=== PATIENT | male | born 1960 | race Caucasian/White ===

== ENCOUNTER 2017-09-06 03:15 | Emergency (ER) | payer MEDICAID ==
[~2017-09-06] VITALS: Ht 188 cm; Wt 130.8 kg
[2017-09-06 03:16] VITALS: BP 172/91
[2017-09-06] MEDS ORDERED: DEXAMETHASONE 4 MG TABLET PO ONE (03:30)
[2017-09-06] MEDS ORDERED: DEXAMETHASONE 4 MG TABLET ONE (03:31)
[2017-09-06] MEDS ORDERED: LIDOCAINE-MPF 1%, 5ML ONE (03:42)
[2017-09-06] MEDS ORDERED: BENZOCAINE 20% SPRAY 0.5ML ONE (03:42)
[2017-09-06] MEDS ORDERED: BENZOCAINE 20% SPRAY 0.5ML TP ONE (04:00)
[2017-09-06] MEDS ORDERED: LIDOCAINE-MPF 1%, 5ML INFIL ONE (04:00)
[2017-09-07] MEDS ORDERED: AMOX1TAB12 PO (07:34)
== END 2017-09-06 04:23 | disposition home or self-care (01) ==
LOC: ED 04:06
DX: J36 Peritonsillar abscess (principal); J02.0 Streptococcal pharyngitis; R07.0 Pain in throat; F17.210 Nicotine dependence, cigarettes, uncomplicated
CPT/HCPCS: 42700; 87880; 99283; 99406

== ENCOUNTER 2018-03-10 21:08 | Emergency (ER) | payer MEDICAID ==
[~2018-03-10] VITALS: Ht 188 cm; Wt 136.7 kg
[~2018-03-10 21:08] MED LIST: AMOX1TAB12 PO
[2018-03-10 21:24] VITALS: BP 168/98
[2018-03-10 22:26] LABS: BASOPHILS # (AUTO) 0.07 x10^3/uL (0-0.1); BASOPHILS % (AUTO) 1 % (0-1); EOSINOPHILS # (AUTO) 0.31 x10^3/uL (0-0.4); EOSINOPHILS % (AUTO) 3 % (1-7); LYMPHOCYTES # (AUTO) 2.24 x10^3/uL (1-3.4); LYMPHOCYTES % (AUTO) 23 % (22-44); MD NO; MEAN CORPUSCULAR HEMOGLOBIN 30.1 pg (27.5-34.5); MEAN CORPUSCULAR HGB CONC 34.8 g/dL (33.2-36.2); MEAN CORPUSCULAR VOLUME 86.7 fL (81-97); MEAN PLATELET VOLUME 9.3 fL (7.4-10.4); MONOCYTES # (AUTO) 0.92 x10^3/uL (0.2-0.8); MONOCYTES % (AUTO) 9 % (2-9); NEUTROPHILS # (AUTO) 6.34 x10^3/uL (1.8-6.8); NEUTROPHILS % (AUTO) 64 % (42-75); PLATELET COUNT 278 x10^3/uL (130-400); RED CELL DISTRIBUTION WIDTH 12.8 % (9.4-14.8)
[2018-03-10 22:39] LABS: ALANINE AMINOTRANSFERASE 68 U/L (12-78); ALBUMIN 3.6 g/dL (3.4-5.0); ANION GAP 11 mmol/L (5-15); CALCIUM 8.5 mg/dL (8.5-10.1); CHLORIDE 102 mmol/L (98-107)
[2018-03-10 22:42] LABS: ALKALINE PHOSPHATASE 126 U/L (45-117); BILIRUBIN,TOTAL 0.7 mg/dL (0.2-1.0); TOTAL PROTEIN 8.4 g/dL (6.4-8.2)
[2018-03-10] MEDS ORDERED: DIPH,PERTUSS(ACELL),TET VAC/PF 0.5 ML IM-VACC ONE ×2 (23:10→23:30)
== END 2018-03-10 23:25 | disposition home or self-care (01) ==
LOC: ED 22:05
DX: L03.113 Cellulitis of right upper limb (principal); L03.011 Cellulitis of right finger; E11.65 Type 2 diabetes mellitus with hyperglycemia; E83.52 Hypercalcemia; I80.8 Phlebitis and thrombophlebitis of other sites; F17.200 Nicotine dependence, unspecified, uncomplicated; Z90.49 Acquired absence of other specified parts of digestive tract
CPT/HCPCS: 36415; 80053; 83605; 85025; 87040; 90471; 90715; 93005

== ENCOUNTER 2019-03-23 10:57 | Emergency (ER) | payer MEDICAID ==
[~2019-03-23] VITALS: Ht 188 cm; Wt 115.0 kg
--- NOTE | 2019-03-23 11:18 | NUR ---
THIS IS A 59 YO MALE BIB [facility] FOR LEFT FOOT PAIN/BURNING/NUMBNESS. TWO MONTHS AGO PATIENT WAS TOLD TO FOLLOW UP WITH DOCTOR FOR DIABETES SCREENING, PATIENT DID NOT FOLLOW UP. PATIENT CURRENTLY HAS LEFT FOOT NUMBNESS/PAIN/BURNING STARTING 3 DAYS AGO, STATES INCREASE IN THIRST AND URINATION. PATIENT HAS BEEN MEDICATING WITH IBUPROFEN WITH RELIEF OF PAIN. EN ROUTE, [facility] STATES BLOOD SUGAR WAS 320. IN ROOM, DOPPLER WAS USED TO LOCATED DISTAL PULSES IN LEFT FOOT. LOCATED AND MARKED BOTH DP AND PT PULSES IN LEFT FOOT AT 1110. PATIENT PLACED ON CONTINUOUS SPO2 AT 96%, CYCLE BP Q1HR. NEEDS ADDRESSED.
[2019-03-23] MEDS ORDERED: HYDROcodone/APAP 5/325 TABLET ONE (11:27)
[2019-03-23] MEDS ORDERED: HYDROcodone/APAP 5/325 TABLET PO ONE (11:30)
--- NOTE | 2019-03-23 11:31 | NUR ---
PATIENT WAS GIVEN LITER OF FLUID EN ROUTE BY [facility]. PATIENT MEDICATED PER EMAR, NEEDS ADDRESSED.
[2019-03-23 11:35] LABS: BASOPHILS # (AUTO) 0.01 x10^3/uL (0-0.1); BASOPHILS % (AUTO) 0 % (0-1); EOSINOPHILS # (AUTO) 0.17 x10^3/uL (0-0.4); EOSINOPHILS % (AUTO) 2 % (1-7); LYMPHOCYTES # (AUTO) 0.82 x10^3/uL (1-3.4); LYMPHOCYTES % (AUTO) 8 % (22-44); MD NO; MEAN CORPUSCULAR HEMOGLOBIN 28.9 pg (27.5-34.5); MEAN CORPUSCULAR HGB CONC 33.2 g/dL (33.2-36.2); MEAN PLATELET VOLUME 8.7 fL (7.4-10.4); MONOCYTES % (AUTO) 7 % (2-9); NEUTROPHILS % (AUTO) 83 % (42-75); PLATELET COUNT 212 x10^3/uL (130-400); RED BLOOD COUNT 5.23 x10^6/uL (4.38-5.82); RED CELL DISTRIBUTION WIDTH 13.7 % (9.4-14.8)
[2019-03-23 11:51] LABS: ALBUMIN 2.6 g/dL (3.4-5.0); ANION GAP 8 mmol/L (5-15); CALCIUM 8.6 mg/dL (8.5-10.1); CHLORIDE 103 mmol/L (98-107)
[2019-03-23] MEDS ORDERED: POTASSIUM CHLORIDE 20 MEQ PACKET ONE (12:19)
--- NOTE | 2019-03-23 12:23 | NUR ---
TASK RN: PT RESTING ON GURNEY. NADN. MORTON.
[2019-03-23 12:51] LABS: HCT (SEDRATE) 45.5 % (39.2-51.8)
[2019-03-23] MEDS ORDERED: POTASSIUM CHLORIDE 20 MEQ PACKET PO ONE (13:00)
--- NOTE | 2019-03-23 13:20 | NUR ---
TASK RN: PT RESTING ON GURNEY. BUCK VSS. REPORT GIVEN TO ASHKAN RAI.
--- NOTE | 2019-03-23 13:32 | NUR ---
[facility] RPT REC'D FROM ASHKAN AVINA. ASSUMED PT CARE. PT VSS, ALL TESTS RESULTED AND CHART MARKED FOR RECHECK. CALL LIGHT W/I REACH, NAD NOTED.
--- NOTE | 2019-03-23 15:22 | NUR ---
DR SMITH AT BEDSIDE. TEST RESULTS AND PAIN MGMT DISCUSSED. PT PAIN INCREASING, NEW ORDERS REC'D. MEAL TRAY ORDERED.
[2019-03-23] MEDS ORDERED: KETOROLAC 30 MG/1 ML ONE (15:26)
--- NOTE | 2019-03-23 15:33 | NUR ---
PT MED NOTED FOR FOOT PAIN. MEAL TRAY ORDERED, CALL LIGHT W/I REACH
[2019-03-23] MEDS ORDERED: KETOROLAC 30 MG/1 ML IM ONE (16:00)
[2019-03-23] MEDS ORDERED: KETOROLAC 30 MG/1 ML IVPush ONE (16:00)
[2019-03-23 17:09] VITALS: BP 122/76
--- NOTE | 2019-03-23 17:11 | NUR ---
Patient/Caregiver given discharge instructions and they have confirmed that they understand the instructions. Patient ambulatory with [facility]. TAXI VOUCHER PROVIDED
== END 2019-03-23 17:12 | disposition home or self-care (01) ==
LOC: ED 14:03
DX: M79.672 Pain in left foot (principal); E11.65 Type 2 diabetes mellitus with hyperglycemia; F17.200 Nicotine dependence, unspecified, uncomplicated
CPT/HCPCS: 29515; 36415; 73630; 73720; 80048; 82040; 85025; 85651; 93005; 96374; 99284; J1885

== ENCOUNTER 2019-08-26 13:27 | Inpatient (IN) | payer MEDICAID ==
[~2019-08-26] VITALS: Ht 188 cm; Wt 108.0 kg
--- NOTE | 2019-08-26 14:17 | NUR ---
FIRST CONTACT WITH PT. PT C/O CONTINUED LEFT HIP PAIN AFTER BEING DIAGNOSED WITH SEPTIC LEFT HIP THAT REQUIRED ADMISSION TO [facility] FOR ABOUT A MONTH PER PT AND WAS RELEASED YESTERDAY. PT RELEASED TO PENITENTIARY AND PT REPORTS HE/PENITENTIARY NOT ABLE TO CAR FOR HIM. PT'S AOX4. RESPS EVEN AND UNLABORED. BP/SPO2 MONITORS IN PLACE. CALL LIGHT WITHIN REACH. RAILS UP X 2.
[2019-08-26] MEDS ORDERED: MORPHINE SULFATE 4 MG/ML, 1ML ONE ×3 (14:21→19:07)
[2019-08-26] MEDS ORDERED: SODIUM CHLORIDE 0.9% 1,000ML IVBOLUS ONE (14:30)
[2019-08-26] MEDS: MORPHINE SULFATE 4 MG/ML, 1ML IVPush PRN ×2 (14:33→16:30)
--- NOTE | 2019-08-26 14:35 | NUR ---
pt medicated per emar for pain. pt tolerated well. ns infusing at this time.
[2019-08-26 14:42] LABS: BASOPHILS # (AUTO) 0.08 x10^3/uL (0-0.1); BASOPHILS % (AUTO) 1 % (0-1); EOSINOPHILS # (AUTO) 0.21 x10^3/uL (0-0.4); EOSINOPHILS % (AUTO) 2 % (1-7); LYMPHOCYTES % (AUTO) 23 % (22-44); MD NO; MEAN CORPUSCULAR HEMOGLOBIN 25.6 pg (27.5-34.5); MEAN CORPUSCULAR HGB CONC 32.7 g/dL (33.2-36.2); MEAN CORPUSCULAR VOLUME 78.3 fL (81-97); MEAN PLATELET VOLUME 8.4 fL (7.4-10.4); MONOCYTES # (AUTO) 1.15 x10^3/uL (0.2-0.8); MONOCYTES % (AUTO) 10 % (2-9); NEUTROPHILS # (AUTO) 7.51 x10^3/uL (1.8-6.8); NEUTROPHILS % (AUTO) 64 % (42-75); PLATELET COUNT 415 x10^3/uL (130-400); RED BLOOD COUNT 5.44 x10^6/uL (4.38-5.82); RED CELL DISTRIBUTION WIDTH 20.9 % (9.4-14.8)
[2019-08-26 14:44] LABS: ALBUMIN 3.2 g/dL (3.4-5.0); ANION GAP 7 mmol/L (5-15); CALCIUM 9.7 mg/dL (8.5-10.1); CHLORIDE 104 mmol/L (98-107)
[2019-08-26 14:53] LABS: ALANINE AMINOTRANSFERASE 24 U/L (12-78); ALKALINE PHOSPHATASE 114 U/L (45-117); BILIRUBIN,TOTAL 0.5 mg/dL (0.2-1.0); CREATININE 0.94 mg/dL (0.7-1.3); TOTAL PROTEIN 9.2 g/dL (6.4-8.2)
[2019-08-26] MEDS ORDERED: ACETAMINOPHEN 500 MG TABLET PO ONE (15:00)
--- NOTE | 2019-08-26 15:00 | NUR ---
RECTAL TEMP IS 101.1. EDMD/AIR COMPRESSOR OPERATOR NOTIFIED. PT DENIES ANY RESPS SX.
[2019-08-26] MEDS ORDERED: ACETAMINOPHEN 500 MG TABLET ONE (15:07)
--- NOTE | 2019-08-26 15:09 | NUR ---
pt medicated per emar for fever at this time. pt tolerated well.
[2019-08-26 15:37] LABS: HCT (SEDRATE) 42.5 % (39.2-51.8)
--- NOTE | 2019-08-26 15:49 | NUR ---
PT'S PAIN LEVEL IS 5/10 AT THIS TIME.
[2019-08-26] MEDS ORDERED: PIPERACILLIN/TAZO/PMX 3.375GM 50 ML IV ONE (16:00)
[2019-08-26] MEDS ORDERED: PIPERACILLIN/TAZO/PMX 3.375GM 50 ML ONE (16:10)
--- NOTE | 2019-08-26 16:15 | NUR ---
abx infusing at this time. pt tolerated well.
[2019-08-26] MEDS ORDERED: GABA600T7 PO (16:17)
[2019-08-26] MEDS ORDERED: CYCL5TAB PO (16:18)
[2019-08-26] MEDS ORDERED: HYDR-3237 PO (16:20)
[2019-08-26] MEDS ORDERED: DULO20CA45 PO (16:20)
[2019-08-26] MEDS ORDERED: DULO30CA2 PO (16:21)
--- NOTE | 2019-08-26 16:23 | NUR ---
Marcos olsen in [facility] - 08/26/19 at 1717 by DEO PT TO MRI AT THIS TIME.
[2019-08-26] MEDS ORDERED: VANCOMYCIN PER PHARMACY MC ONE (16:30)
--- NOTE | 2019-08-26 16:32 | NUR ---
pt medicated per emar before mri. pt to mri at this time.
--- NOTE | 2019-08-26 16:38 | NUR ---
called for report x 1. renard rn is busy and will call back.
[2019-08-26] MEDS ORDERED: VANCOMYCIN 2,000 MG in SODIUM CHLORIDE 0.9% 500 ML IV ONE (17:00)
--- NOTE | 2019-08-26 17:37 | NUR ---
called for report x 1. renard rn is busy and will call back.
--- NOTE | 2019-08-26 17:39 | NUR ---
pt still in mri at this time.
--- NOTE | 2019-08-26 17:55 | NUR ---
REPORT GIVEN TO SHREE LUTHER. ALL QUESTIONS ANSWERED.
[2019-08-26] MEDS ORDERED: GADOTERATE 10 MMOL/20 ML SYR ONE (18:18)
--- NOTE | 2019-08-26 18:45 | NUR ---
pt still in mri at this time.
--- NOTE | 2019-08-26 19:09 | NUR ---
pt c/o 02/11 pain. updated additional orders at this time. pt medicated per order from dr. munoz
--- NOTE | 2019-08-26 19:22 | NUR ---
HOSPITALIST AT BEDSIDE TO ADMIT AND ASSESS PT
[2019-08-26] MEDS ORDERED: MORPHINE SULFATE 4 MG/ML, 1ML IVPush ONE (19:30)
[2019-08-26] MEDS ORDERED: ENALAPRILAT 1.25 MG/ML, 2ML IVPush PRN (19:30)
[2019-08-26] MEDS ORDERED: ONDANSETRON ODT 4 MG PO PRN (19:30)
[2019-08-26] MEDS ORDERED: LABETALOL 5MG/ML, 20ML IVPush PRN (19:30)
[2019-08-26] MEDS ORDERED: POLYETHYLENE GLYCOL 17 GM PACKET PO PRN (19:30)
[2019-08-26] MEDS ORDERED: ONDANSETRON 2MG/ML, 2ML IVPush PRN (19:30)
[2019-08-26] MEDS ORDERED: BISACODYL 10 MG SUPP PR PRN (19:30)
[2019-08-26] MEDS ORDERED: ACETAMINOPHEN 325 MG TABLET PO PRN (19:30)
[2019-08-26] MEDS ORDERED: BACLOFEN 10 MG TABLET PO PRN (19:30)
[2019-08-26 19:35] VITALS: BP 148/95
[2019-08-26 19:52] VITALS: BP 138/88
[2019-08-26] MEDS ORDERED: DEXTROSE 50%, 50ML SYRINGE IVPush PRN (20:00)
[2019-08-26] MEDS ORDERED: VANCOMYCIN PER PHARMACY MC PRN (20:00)
[2019-08-26] MEDS ORDERED: DEXTROSE 4 GM TAB.CHEW PO PRN (20:00)
[2019-08-26] MEDS ORDERED: GLUCAGON 1 MG IM PRN (20:00)
[2019-08-26] MEDS: GABAPENTIN 100 MG CAPSULE PO SCH (20:40)
[2019-08-26] MEDS: SODIUM CHLORIDE 0.9% 1,000 ML IV SCH (20:40)
[2019-08-26] MEDS: SODIUM CHLORIDE FLUSH 10ML SYR IVF SCH (20:41)
[2019-08-26] MEDS: INSULIN LISPRO 100 UNITS/ML, PEN SQ-INSULIN SCH (20:42)
[2019-08-26] MEDS ORDERED: PHARMACOKINETIC CONSULTATION MC ONE (21:00)
[2019-08-26] MEDS ORDERED: PHARMACOKINETIC MONITORING MC PRN (21:00)
[2019-08-26] MEDS: METHOCARBAMOL 500 MG TABLET PO PRN (21:01)
[2019-08-26] MEDS: HYDROcodone/APAP 5/325 TABLET PO PRN (21:02)
[2019-08-26] MEDS: PIPERACILLIN/TAZO/PMX 3.375GM 50 ML IV SCH (23:08)
[2019-08-27 00:04] VITALS: BP 127/73
[2019-08-27] MEDS: HYDROcodone/APAP 5/325 TABLET PO PRN ×2 (02:04→04:37)
[2019-08-27] MEDS: KETOROLAC 30 MG/1 ML IV PRN ×3 (02:09→21:45)
[2019-08-27] MEDS: PIPERACILLIN/TAZO/PMX 3.375GM 50 ML IV SCH ×4 (04:29→22:45)
[2019-08-27 06:47] LABS: BASOPHILS % (AUTO) 1 % (0-1); EOSINOPHILS # (AUTO) 0.59 x10^3/uL (0-0.4); EOSINOPHILS % (AUTO) 8 % (1-7); LYMPHOCYTES # (AUTO) 2.06 x10^3/uL (1-3.4); LYMPHOCYTES % (AUTO) 29 % (22-44); MD NO; MEAN CORPUSCULAR HEMOGLOBIN 25.7 pg (27.5-34.5); MEAN CORPUSCULAR HGB CONC 32.9 g/dL (33.2-36.2); MEAN CORPUSCULAR VOLUME 78.3 fL (81-97); MEAN PLATELET VOLUME 8.3 fL (7.4-10.4); MONOCYTES % (AUTO) 11 % (2-9); NEUTROPHILS # (AUTO) 3.46 x10^3/uL (1.8-6.8); NEUTROPHILS % (AUTO) 49 % (42-75); PLATELET COUNT 351 x10^3/uL (130-400); RED BLOOD COUNT 4.72 x10^6/uL (4.38-5.82); RED CELL DISTRIBUTION WIDTH 20.8 % (9.4-14.8)
[2019-08-27 06:50] LABS: ANION GAP 6 mmol/L (5-15); CALCIUM 9.2 mg/dL (8.5-10.1); CHLORIDE 108 mmol/L (98-107); CREATININE 0.84 mg/dL (0.7-1.3)
[2019-08-27 07:34] VITALS: BP 133/78
[2019-08-27] MEDS: GABAPENTIN 100 MG CAPSULE PO SCH (07:45)
[2019-08-27] MEDS: SENNA/DOCUSATE TABLET PO SCH (07:45)
[2019-08-27] MEDS: SODIUM CHLORIDE FLUSH 10ML SYR IVF SCH ×2 (07:46→20:38)
[2019-08-27] MEDS: DULOXETINE 30 MG CAPSULE.DR PO SCH (07:46)
[2019-08-27] MEDS: INSULIN LISPRO 100 UNITS/ML, PEN SQ-INSULIN SCH ×4 (07:46→21:01)
[2019-08-27] MEDS ORDERED: FERROUS SULFATE 325 MG TABLET PO SCH (08:00)
[2019-08-27] MEDS ORDERED: ACETAMINOPHEN 325 MG TABLET PO PRN (08:30)
[2019-08-27] MEDS: VANCOMYCIN 1,900 MG in SODIUM CHLORIDE 0.9% 250 ML IV SCH ×2 (09:35→20:38)
[2019-08-27] MEDS: HEPARIN 5,000 UNITS/ML, 1ML SQ SCH ×2 (09:48→17:00)
[2019-08-27 12:43] VITALS: BP 133/77
[2019-08-27] MEDS: SODIUM CHLORIDE 0.9% 1,000 ML IV SCH (14:28)
[2019-08-27] MEDS: METHOCARBAMOL 500 MG TABLET PO PRN (14:30)
[2019-08-27 20:06] VITALS: BP 142/84
[2019-08-28] MEDS: HEPARIN 5,000 UNITS/ML, 1ML SQ SCH ×3 (00:17→17:57)
[2019-08-28 01:41] VITALS: BP 153/96
[2019-08-28] MEDS: PIPERACILLIN/TAZO/PMX 3.375GM 50 ML IV SCH (03:52)
[2019-08-28] MEDS: KETOROLAC 30 MG/1 ML IV PRN ×3 (03:52→17:57)
[2019-08-28 05:40] LABS: BASOPHILS # (AUTO) 0.13 x10^3/uL (0-0.1); BASOPHILS % (AUTO) 2 % (0-1); EOSINOPHILS # (AUTO) 0.59 x10^3/uL (0-0.4); EOSINOPHILS % (AUTO) 9 % (1-7); LYMPHOCYTES # (AUTO) 1.84 x10^3/uL (1-3.4); LYMPHOCYTES % (AUTO) 28 % (22-44); MD NO; MEAN CORPUSCULAR HEMOGLOBIN 26.1 pg (27.5-34.5); MEAN CORPUSCULAR HGB CONC 32.7 g/dL (33.2-36.2); MEAN CORPUSCULAR VOLUME 79.7 fL (81-97); MEAN PLATELET VOLUME 8.1 fL (7.4-10.4); MONOCYTES # (AUTO) 0.68 x10^3/uL (0.2-0.8); MONOCYTES % (AUTO) 11 % (2-9); NEUTROPHILS # (AUTO) 3.25 x10^3/uL (1.8-6.8); NEUTROPHILS % (AUTO) 50 % (42-75); PLATELET COUNT 347 x10^3/uL (130-400); RED BLOOD COUNT 4.71 x10^6/uL (4.38-5.82); RED CELL DISTRIBUTION WIDTH 21.1 % (9.4-14.8)
[2019-08-28 05:51] LABS: ANION GAP 8 mmol/L (5-15); CALCIUM 8.9 mg/dL (8.5-10.1); CHLORIDE 110 mmol/L (98-107); CREATININE 0.76 mg/dL (0.7-1.3)
[2019-08-28] MEDS: HYDROcodone/APAP 5/325 TABLET PO PRN ×2 (06:36→15:47)
[2019-08-28 07:00] VITALS: BP 138/91
[2019-08-28] MEDS: INSULIN LISPRO 100 UNITS/ML, PEN SQ-INSULIN SCH ×4 (07:34→20:13)
[2019-08-28] MEDS: DULOXETINE 30 MG CAPSULE.DR PO SCH (10:11)
[2019-08-28] MEDS: SODIUM CHLORIDE 0.9% 1,000 ML IV SCH (10:11)
[2019-08-28] MEDS: SODIUM CHLORIDE FLUSH 10ML SYR IVF SCH ×2 (10:12→19:56)
[2019-08-28] MEDS: SENNA/DOCUSATE TABLET PO SCH (10:58)
[2019-08-28] MEDS ORDERED: TRAZODONE 50MG TABLET PO PRN (14:00)
[2019-08-28 14:21] VITALS: BP 132/74
[2019-08-28 19:15] VITALS: BP 139/84
[2019-08-29 00:24] VITALS: BP 152/85
[2019-08-29] MEDS: HEPARIN 5,000 UNITS/ML, 1ML SQ SCH ×3 (01:58→18:21)
[2019-08-29] MEDS: SODIUM CHLORIDE 0.9% 1,000 ML IV SCH ×2 (02:31→18:20)
[2019-08-29] MEDS: KETOROLAC 30 MG/1 ML IV PRN ×3 (05:51→19:51)
[2019-08-29] MEDS: INSULIN LISPRO 100 UNITS/ML, PEN SQ-INSULIN SCH ×4 (07:00→20:50)
[2019-08-29 07:51] VITALS: BP 150/80
[2019-08-29] MEDS: FERROUS SULFATE 325 MG TABLET PO SCH (08:33)
[2019-08-29] MEDS: SENNA/DOCUSATE TABLET PO SCH (08:33)
[2019-08-29] MEDS: DULOXETINE 30 MG CAPSULE.DR PO SCH (08:33)
[2019-08-29] MEDS: SODIUM CHLORIDE FLUSH 10ML SYR IVF SCH ×2 (08:34→20:40)
[2019-08-29] MEDS: HYDROcodone/APAP 5/325 TABLET PO PRN ×2 (10:27→21:21)
[2019-08-29] MEDS ORDERED: BISACODYL 10 MG SUPP PR PRN (10:30)
[2019-08-29] MEDS ORDERED: TRAZODONE 50MG TABLET PO PRN (10:30)
[2019-08-29 14:36] VITALS: BP 146/85
[2019-08-29 18:44] VITALS: BP 159/91
[2019-08-29] MEDS: TRAZODONE 50MG TABLET PO PRN (20:40)
[2019-08-30 01:22] VITALS: BP 148/86
[2019-08-30] MEDS: HEPARIN 5,000 UNITS/ML, 1ML SQ SCH ×3 (01:32→18:05)
[2019-08-30] MEDS: KETOROLAC 30 MG/1 ML IV PRN ×3 (05:39→21:45)
[2019-08-30] MEDS: INSULIN LISPRO 100 UNITS/ML, PEN SQ-INSULIN SCH ×4 (07:00→19:58)
[2019-08-30 08:05] VITALS: BP 145/89
[2019-08-30] MEDS: SODIUM CHLORIDE FLUSH 10ML SYR IVF SCH ×2 (08:50→20:34)
[2019-08-30] MEDS: DULOXETINE 30 MG CAPSULE.DR PO SCH (08:50)
[2019-08-30] MEDS: HYDROcodone/APAP 5/325 TABLET PO PRN ×2 (08:50→18:06)
[2019-08-30] MEDS: SENNA/DOCUSATE TABLET PO SCH (08:51)
[2019-08-30] MEDS: SODIUM CHLORIDE 0.9% 1,000 ML IV SCH (10:24)
[2019-08-30 12:30] VITALS: BP 150/91
[2019-08-30 18:29] VITALS: BP 157/86
[2019-08-30] MEDS: TRAZODONE 50MG TABLET PO PRN (19:39)
[2019-08-31 00:03] VITALS: BP 151/93
[2019-08-31] MEDS: HEPARIN 5,000 UNITS/ML, 1ML SQ SCH ×3 (02:00→18:30)
[2019-08-31] MEDS: SODIUM CHLORIDE 0.9% 1,000 ML IV SCH ×2 (02:22→19:23)
[2019-08-31] MEDS: HYDROcodone/APAP 5/325 TABLET PO PRN (02:22)
[2019-08-31] MEDS: INSULIN LISPRO 100 UNITS/ML, PEN SQ-INSULIN SCH ×4 (07:00→21:00)
[2019-08-31] MEDS: DULOXETINE 30 MG CAPSULE.DR PO SCH (08:32)
[2019-08-31] MEDS: FERROUS SULFATE 325 MG TABLET PO SCH (08:32)
[2019-08-31] MEDS: SODIUM CHLORIDE FLUSH 10ML SYR IVF SCH ×2 (08:33→21:00)
[2019-08-31] MEDS: SENNA/DOCUSATE TABLET PO SCH (08:34)
[2019-08-31] MEDS: KETOROLAC 30 MG/1 ML IV PRN (08:40)
[2019-08-31 08:56] VITALS: BP 138/83
[2019-08-31 11:03] LABS: BASOPHILS # (AUTO) 0.07 x10^3/uL (0-0.1); BASOPHILS % (AUTO) 1 % (0-1); EOSINOPHILS # (AUTO) 0.37 x10^3/uL (0-0.4); EOSINOPHILS % (AUTO) 5 % (1-7); LYMPHOCYTES # (AUTO) 1.62 x10^3/uL (1-3.4); LYMPHOCYTES % (AUTO) 24 % (22-44); MD NO; MEAN CORPUSCULAR VOLUME 78.7 fL (81-97); MONOCYTES % (AUTO) 10 % (2-9); NEUTROPHILS % (AUTO) 60 % (42-75); PLATELET COUNT 376 x10^3/uL (130-400); RED BLOOD COUNT 4.93 x10^6/uL (4.38-5.82); RED CELL DISTRIBUTION WIDTH 20.8 % (9.4-14.8)
[2019-08-31 11:13] LABS: ALBUMIN 2.8 g/dL (3.4-5.0); ANION GAP 4 mmol/L (5-15); CALCIUM 9.1 mg/dL (8.5-10.1); CHLORIDE 108 mmol/L (98-107)
[2019-08-31 11:16] LABS: ALANINE AMINOTRANSFERASE 23 U/L (12-78); ALKALINE PHOSPHATASE 91 U/L (45-117); BILIRUBIN,TOTAL 0.3 mg/dL (0.2-1.0); CREATININE 0.78 mg/dL (0.7-1.3); TOTAL PROTEIN 7.9 g/dL (6.4-8.2)
[2019-08-31 13:02] VITALS: BP 159/89
[2019-08-31 19:01] VITALS: BP 149/83
[2019-08-31] MEDS: TRAZODONE 50MG TABLET PO PRN (19:18)
[2019-08-31] MEDS: IBUPROFEN 800 MG TABLET PO PRN (20:52)
[2019-09-01 01:03] VITALS: BP 155/88
[2019-09-01] MEDS: HEPARIN 5,000 UNITS/ML, 1ML SQ SCH ×3 (01:53→17:51)
[2019-09-01] MEDS: HYDROcodone/APAP 5/325 TABLET PO PRN ×3 (02:17→17:54)
[2019-09-01] MEDS: IBUPROFEN 800 MG TABLET PO PRN ×3 (04:49→23:13)
[2019-09-01] MEDS ORDERED: IBUPROFEN 800 MG TABLET PO PRN (05:00)
[2019-09-01] MEDS: INSULIN LISPRO 100 UNITS/ML, PEN SQ-INSULIN SCH ×4 (07:00→20:10)
[2019-09-01 07:50] VITALS: BP 163/88
[2019-09-01] MEDS: SENNA/DOCUSATE TABLET PO SCH (09:23)
[2019-09-01] MEDS: DULOXETINE 30 MG CAPSULE.DR PO SCH (09:23)
[2019-09-01] MEDS: SODIUM CHLORIDE FLUSH 10ML SYR IVF SCH ×2 (09:24→20:07)
[2019-09-01 12:39] VITALS: BP 156/89
[2019-09-01 18:44] VITALS: BP 154/85
[2019-09-01] MEDS: TRAZODONE 50MG TABLET PO PRN (20:06)
[2019-09-01] MEDS: DOXYCYCLINE 100MG TABLET PO SCH (20:07)
[2019-09-02 00:52] VITALS: BP 159/96
[2019-09-02] MEDS: HYDROcodone/APAP 5/325 TABLET PO PRN ×3 (02:21→17:45)
[2019-09-02] MEDS: HEPARIN 5,000 UNITS/ML, 1ML SQ SCH ×3 (02:22→17:45)
[2019-09-02 05:43] LABS: BASOPHILS # (AUTO) 0.09 x10^3/uL (0-0.1); BASOPHILS % (AUTO) 1 % (0-1); EOSINOPHILS # (AUTO) 0.58 x10^3/uL (0-0.4); EOSINOPHILS % (AUTO) 8 % (1-7); LYMPHOCYTES # (AUTO) 2.22 x10^3/uL (1-3.4); LYMPHOCYTES % (AUTO) 30 % (22-44); MD NO; MEAN CORPUSCULAR HEMOGLOBIN 26.2 pg (27.5-34.5); MEAN CORPUSCULAR VOLUME 79.4 fL (81-97); MONOCYTES # (AUTO) 0.73 x10^3/uL (0.2-0.8); MONOCYTES % (AUTO) 10 % (2-9); NEUTROPHILS # (AUTO) 3.81 x10^3/uL (1.8-6.8); NEUTROPHILS % (AUTO) 51 % (42-75); PLATELET COUNT 329 x10^3/uL (130-400); RED BLOOD COUNT 4.98 x10^6/uL (4.38-5.82); RED CELL DISTRIBUTION WIDTH 20.8 % (9.4-14.8)
[2019-09-02 05:48] LABS: ANION GAP 4 mmol/L (5-15); CHLORIDE 110 mmol/L (98-107)
[2019-09-02 06:59] VITALS: BP 154/87
[2019-09-02] MEDS: INSULIN LISPRO 100 UNITS/ML, PEN SQ-INSULIN SCH ×4 (07:00→19:51)
[2019-09-02] MEDS: DULOXETINE 30 MG CAPSULE.DR PO SCH (09:35)
[2019-09-02] MEDS: DOXYCYCLINE 100MG TABLET PO SCH ×2 (09:35→19:40)
[2019-09-02] MEDS: SENNA/DOCUSATE TABLET PO SCH (09:35)
[2019-09-02] MEDS: FERROUS SULFATE 325 MG TABLET PO SCH (09:35)
[2019-09-02] MEDS: IBUPROFEN 800 MG TABLET PO PRN ×2 (09:36→19:40)
[2019-09-02] MEDS: SODIUM CHLORIDE FLUSH 10ML SYR IVF SCH ×2 (09:38→19:40)
[2019-09-02] MEDS ORDERED: TRAZODONE 100MG TABLET PO PRN (11:30)
[2019-09-02 14:03] VITALS: BP 164/88
[2019-09-02 18:40] VITALS: BP 154/84
[2019-09-03 00:29] VITALS: BP 155/90
[2019-09-03] MEDS: HEPARIN 5,000 UNITS/ML, 1ML SQ SCH ×3 (02:00→14:58)
[2019-09-03] MEDS: HYDROcodone/APAP 5/325 TABLET PO PRN ×2 (02:55→09:13)
[2019-09-03] MEDS: IBUPROFEN 800 MG TABLET PO PRN ×2 (03:54→13:41)
[2019-09-03] MEDS: METHOCARBAMOL 500 MG TABLET PO PRN (04:37)
[2019-09-03] MEDS: INSULIN LISPRO 100 UNITS/ML, PEN SQ-INSULIN SCH ×3 (07:00→14:58)
[2019-09-03 07:58] VITALS: BP 145/85
[2019-09-03] MEDS: SENNA/DOCUSATE TABLET PO SCH (09:00)
[2019-09-03] MEDS: SODIUM CHLORIDE FLUSH 10ML SYR IVF SCH (09:00)
[2019-09-03] MEDS: DULOXETINE 30 MG CAPSULE.DR PO SCH (09:12)
[2019-09-03] MEDS: DOXYCYCLINE 100MG TABLET PO SCH (09:13)
[2019-09-03 13:30] VITALS: BP 156/81
[2019-09-03] MEDS ORDERED: METH500T7 PO (15:47)
[2019-09-03] MEDS ORDERED: DOXY100T PO (15:47)
[2019-09-03] MEDS ORDERED: TRAZ-175 PO (15:47)
[2019-09-03] MEDS ORDERED: GABA600T7 PO (15:47)
[2019-09-03] MEDS ORDERED: DULO30CA2 PO (15:47)
== END 2019-09-03 16:30 | disposition home or self-care (01) | DRG 554 ==
LOC: ED 14:22 → EDIP 15:55 → 3N 19:30
PROVIDERS: ADMIT Internal Medicine; ATTEND Internal Medicine
DX: M16.12 Unilateral primary osteoarthritis, left hip (principal); M46.26 Osteomyelitis of vertebra, lumbar region; R26.2 Difficulty in walking, not elsewhere classified; E11.69 Type 2 diabetes mellitus with other specified complication; G89.29 Other chronic pain; Z66 Do not resuscitate; E11.51 Type 2 diabetes mellitus with diabetic peripheral angiopathy without gangrene; E66.9 Obesity, unspecified; F17.210 Nicotine dependence, cigarettes, uncomplicated; I10 Essential (primary) hypertension; K59.09 Other constipation; D50.9 Iron deficiency anemia, unspecified; G47.00 Insomnia, unspecified; F15.10 Other stimulant abuse, uncomplicated; Z71.51 Drug abuse counseling and surveillance of drug abuser; Z90.49 Acquired absence of other specified parts of digestive tract; Z83.3 Family history of diabetes mellitus; Z79.899 Other long term (current) drug therapy; Z59.0 Homelessness; Z86.14 Personal history of Methicillin resistant Staphylococcus aureus infection; Z68.30 Body mass index [BMI] 30.0-30.9, adult
CPT/HCPCS: 36415; 72158; 80048; 80053; 82728; 82962; 83036; 83540; 83550; 83605; 84145; 84466; 85025; 85651; 86140; 87040; 96361; 96374; 96375; 96376; 99285; G0378; J1644; J1885; J2543; J3370; A9575; J1815; J2270; J7030; J7040; J7050